=== PATIENT | female | born 1940 | race Caucasian/White ===

== ENCOUNTER 2016-12-17 12:41 | Inpatient (IN) | payer MEDICARE ==
[~2016-12-17 12:41] MED LIST: ATORVASTATIN CA20 M1 PO; CALCIUM600 M1 PO; CHLOROQUINE PH PO; CITALOPRAM HBR40 M1 PO; DICLOFENAC SODI75 M2 PO; FISH OIL 1,0001 EA10 PO; LEVOTHYROXINE100 MC1 PO; MAGNESIUM OXID400 M1 PO; METOPROLOL SUCC25 M1 PO; OMEPRAZOLE20 M4 PO; POTASSIUM CHLO10 ME2 PO; PREDNISONE5 M1 PO; TRAMADOL HCL50 M2 PO; TRIAMTERENE-HC1 EAC3 PO; TYLENOL EXTRA500 M1 PO; VITAMIN D31000 UNI4 PO
[2016-12-17 13:36] LABS: INR 1.1 INR (0.9-1.1); PROTHROMBIN TIME 12.7 SECONDS (9.0-13.6)
[2016-12-18 05:21] LABS: HGB-HEMOGLOBIN 10.5 gm/dl (12.0-15.5); IMMATURE GRANULOCYTES ABSOLUTE 0.02 tho/cmm (0-0.03); IMMATURE GRANULOCYTES PERCENT 0.2 % (0-0.3); LYMPH % 6.8 % (20-45); LYMPH ABSOLUTE COUNT 0.6 tho/cmm (0.8-4.5); MCHC MEAN CORPUSCULAR HGB CONC 30.9 % (32.0-36.0); MCV (MEAN CELL VOLUME) 90.7 fl (82.0-96.0); MEAN PLATELET VOLUME 9.3 cmc (9.4-12.4); MONOCYTE ABSOLUTE COUNT 0.6 tho/cmm (0.0-1.2); PLATELET COUNT 194 tho/cmm (150-450); RED BLOOD COUNT 3.75 mil/cmm (4.00-5.20); RED CELL DISTRIBUTION WIDTH 13.4 % (12.4-16.4); WHITE BLOOD COUNT 8.1 tho/cmm (4.0-10.0)
[2016-12-20] MEDS ORDERED: ASPIRIN325 M3 PO (08:24)
[2016-12-20] MEDS ORDERED: ROXICODONE5 M2 PO (08:25)
[2016-12-20] MEDS ORDERED: ULTRAM50 M1 PO (08:26)
== END 2016-12-20 11:50 | DRG 470 ==
LOC: SHSB 12:41 → ORE 15:25 → PACU 17:49 → 5EA 19:25
PROVIDERS: ADMIT Orthopaedic Surgery Sports Medicine
PROC: 0SRC0J9 Replacement of Right Knee Joint with Synthetic Substitute, Cemented, Open Approach (ICD-10-PCS; principal; 2016-12-17)
DX: M17.11 Unilateral primary osteoarthritis, right knee (principal); I10 Essential (primary) hypertension; Z88.0 Allergy status to penicillin; E78.5 Hyperlipidemia, unspecified; E03.9 Hypothyroidism, unspecified; Z85.3 Personal history of malignant neoplasm of breast; F32.9 Major depressive disorder, single episode, unspecified
CPT/HCPCS: C1713; C1776; C9290; J0690; J1170; J1885; J2270; J3010